=== PATIENT | female | born 1950 | race Caucasian/White ===

== ENCOUNTER 2018-11-01 06:47 | Observation (INO) | payer OTHER ==
[2018-11-01] MEDS ORDERED: LR 1,000 ML IV ONE (06:58)
[2018-11-01] MEDS ORDERED: DEXAMETHASONE 4 MG/ML VIAL IVP ONE (06:58)
[2018-11-01] MEDS ORDERED: ceFAZolin 2 GM/DEXTROSE 100 ML IV ONE (06:58)
[2018-11-01] MEDS ORDERED: MIDAZOLAM 2 MG/2 ML VIAL IVP ONE (07:17)
--- NOTE | 2018-11-01 07:20 | PDANEPAE ---
ANE History of Present Illness zencker's divertic ANE Past Medical History - Cardiovascular History Hx Hypertension: Yes Hx Arrhythmias: No Hx Chest Pain: No Hx Coronary Artery / Peripheral Vascular Disease: Yes Hx CHF / Valvular Disease: No Hx Palpitations: No - Pulmonary History Hx COPD: No Hx Asthma/Reactive Airway Disease: No Hx Recent Upper Respiratory Infection: No Hx Oxygen in Use at Home: No Hx Sleep Apnea: Yes Pulmonary History Comment: MARYELLEN uses CPAP - Neurologic History Hx Cerebrovascular Accident: No Hx Seizures: No Hx Dementia: No - Endocrine History Hx Diabetes: No Hypothyroid: No Hyperthyroid: No Obesity: mild - Renal History Hx Renal Disorders: No - Liver History Hx Hepatic Disorders: Yes Hepatic History Comment: FATTY LIVER - Neurological & Psychiatric Hx Hx Neurological and Psychiatric Disorders: Yes Neurological / Psychiatric History Comment: 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 mediport removed. cardiac cath 2014 ANE Review of Systems Review of Systems: - Exercise capacity Exercise capacity: >=4 METS METS (RN): 4 METS ANE Patient History - Allergies Allergies/Adverse Reactions: diphenhydramine HCl [From Benadryl] Allergy (Severe, Verified 10/31/18 09:06) TROUBLE BREATHING/ELEVATED BP/TEMP zolpidem tartrate [From Ambien] Allergy (Severe, Verified 10/31/18 09:06) SOB/TONGUE SWELLS adhesive tape Allergy (Intermediate, Verified 10/31/18 09:06) WELTS - Home Medications Home medications: home medication list seen and reviewed Home Medications: Ibuprofen [Motrin (*)] 200 mg PO DAILY PRN 10/25/18 [Last Taken Unknown] Amlodipine Besylate 10/31/18 [Last Taken Unknown] Losartan Potassium 10/31/18 [Last Taken Unknown] - NPO status NPO Status: no food or drink >8 hours - Anes Hx Anes Hx: no prior problems Hx Anesthesia Complications (with details): sometimes low O2 following procedures - Smoking Hx Smoking Status: Never smoked - Family Anes Hx Family Hx Anesthesia Complications: none ANE Labs/Vital Signs - Vital Signs Height: 165.1 cm Weight: 68.039 kg ANE Physical Exam - Airway Mallampati Score: Class 2 Mouth exam: normal dental/mouth exam - Pulmonary Pulmonary: no respiratory distress - Cardiovascular Cardiovascular: regular rate and rhythym - ASA Status ASA Status: III ANE Anesthesia Plan Anesthesia Plan: general endotracheal anesthesia
[2018-11-01] MEDS ORDERED: SUCCINYLCHOLINE CHLORIDE 200 MG/10 ML SYR IVP ONE (07:25)
[2018-11-01] MEDS ORDERED: PROPOFOL 200 MG/20 ML VIAL ONE (07:25)
[2018-11-01] MEDS ORDERED: fentaNYL 100 MCG/2 ML INJ ONE (07:25)
[2018-11-01] MEDS ORDERED: DEXAMETHASONE 4 MG/ML VIAL ONE (07:25)
[2018-11-01] MEDS ORDERED: ONDANSETRON 4 MG/2 ML VIAL ONE ×2 (07:25→09:19)
[2018-11-01] MEDS ORDERED: LIDOCAINE 2% 5 ML SDV ONE (07:27)
[2018-11-01] MEDS ORDERED: LIDO/EPI 1% **Not for Epidural 20 ML MDV ONE (07:28)
[2018-11-01] MEDS ORDERED: EPINEPHrine 1 MG/ML INJ ONE (07:32)
--- NOTE | 2018-11-01 07:40 | PDHPUP ---
History & Physical Update H&P update statement: This history and physical update is based on an assessment of the patient which was completed after admission or registration (within 24 hours), but prior to the surgery/procedure. H&P update: H&P reviewed & patient examined, no change in patient's condition since H&P completed
[2018-11-01] MEDS ORDERED: ROCURONIUM 50 MG/5 ML VIAL ONE (08:06)
[2018-11-01] MEDS ORDERED: ePHEDrine SULFATE 25 MG/5 ML SYR ONE (08:17)
[2018-11-01] MEDS ORDERED: SUGAMMADEX SODIUM 200 MG/2 ML VIAL IVP ONE (08:53)
[2018-11-01] MEDS ORDERED: fentaNYL 100 MCG/2 ML INJ IVP PRN (09:09)
[2018-11-01] MEDS ORDERED: ONDANSETRON 4 MG/2 ML VIAL IVP PRN ×2 (09:09→10:11)
[2018-11-01] MEDS ORDERED: NALOXONE HCL 0.4 MG/ML INJ IVP PRN (09:09)
[2018-11-01] MEDS ORDERED: LR 500 ML IV PRN (09:09)
[2018-11-01] MEDS ORDERED: ALBUTEROL 3 ML DEYVIAL IH PRN (09:09)
--- NOTE | 2018-11-01 09:09 | POSTANESTH ---
Post Anesthetic Evaluation Cardiovascular Status: Normal, Stable Respiratory Status: Normal, Stable Level of Consciousness/Mental Status: Can Participate in Eval Pain Control: Adequate, Prn Tx Ordered Nausea/Vomiting Control: Adequate, Prn Tx Ordered Complications Possibly Related to Anesthesia: None Noted
[2018-11-01] MEDS ORDERED: ACETAMINOPHEN 160 MG/5 ML UDCUP PO PRN (10:11)
[2018-11-01] MEDS ORDERED: HYDROCOD/APAP 7.5/325 IN 15ML UDCUP PO PRN (10:11)
[2018-11-01] MEDS ORDERED: NS 1,000 ML IV SCH (10:15)
[2018-11-01] MEDS: ACETAMINOPHEN 650 MG/20.3 ML UDCUP PO PRN ×2 (18:32→22:51)
--- NOTE | 2018-11-01 18:33 | POSTOPPROG ---
Post Op Note Date of Operation: 11/01/18 Surgeon: Brigido Chen Anesthesiologist: Marco Cee Anesthesia: GET(General Endotracheal) Pre-op Diagnosis: Dysphagia, Zenkers diverticulum Post-op Diagnosis: same Indication: Zenkers Procedure: Suspensin microlaryngoscopy with stapling of zenkers Findings: Large zenkers Inf/Abcess present in the surg proc area at time of surgery?: No Depth: Deep Incisional (Fascial) EBL: Minimal Complications: none Specimen(s): none
--- NOTE | 2018-11-01 18:43 | SOAPPROG ---
NAYELY Progress Note Assessment/Plan: Assessment: PT doing well Plan: Advance to soft diet tomorrow. D/C tomorrow and stay on regular diet till Monday. Follow up in one week. 11/01/18 18:41 Subjective: I dont have any pain. Objective: Vital Signs Temp Pulse Resp BP Pulse Ox 36.7 C 96 16 122/66 H 97 11/01/18 16:06 11/01/18 16:06 11/01/18 16:06 11/01/18 16:06 11/01/18 16:06 10/31/18 11/01/18 11/02/18 05:59 05:59 05:59 Intake Total 2000 Output Total 1999 Balance 0 Neck flat. Pt looks great ICD10 Worksheet Patient Problems: Problems Problem Status Onset Sleep apnea Acute Zenkers diverticulum Acute - ICD10 Problem Qualifiers (1) Zenkers diverticulum (2) Sleep apnea
--- NOTE | 2018-11-01 18:59 | GOP ---
[f rep st] OPERATIVE REPORT DATE OF OPERATION: 11/01/2018 SURGEON: Brigido Chen MD ANESTHESIA: General. PREOPERATIVE DIAGNOSIS: Dysphagia and Zenker diverticulum. POSTOPERATIVE DIAGNOSIS: Dysphagia and Zenker diverticulum. PROCEDURE PERFORMED: Suspension microlaryngoscopy with stapling of Zenker diverticulum. FINDINGS: A large Zenker diverticulum was identified in the typical position. The democrat wall was di vided in the normal fashion with the surgical sealing device. SPECIMENS: None. ESTIMATED BLOOD LOSS: Minimal. INDICATIONS: The patient is a 68-year-old woman with slowly worsening dysphagia over the last few ye ars. She was found to have a large Zenker diverticulum and presents for surgery in hopes of relievin g her dysphagia. DESCRIPTION OF PROCEDURE: The patient was taken to the OR and positively identified, placed on monit ors and general endotracheal anesthesia was induced. The table was then turned 90 degrees. A head d rape was placed and followed by drape. I then fashioned a dental guard out of thermoplastic and plac ed it over the upper incisors to decrease the risk of dental injury. The Weerda laryngoscope was then used to visualize the hypopharynx. It was passed into the hypophary nx behind the larynx and then opened. I was able to identify the Zenker diverticulum, which was fill ed with debris, as well as the democrat wall between the Zenker's and the esophagus. The patient was th en placed in suspension. The Zenker's was cleared of debris. An orogastric feeding tube was then pa ssed into the esophagus to make sure it was positively identified as the true esophagus, which it was . At this point, the endoscopic surgical sealing device was then passed through the laryngoscope wit h visualization using a combination of the microscope and rigid endoscopes. I started with a microsc ope and switched over to the 30-degree rigid scope. Under direct visualization, the democrat wall was c lamped into position. The sealing device was then actuated. Once the treatment was completed, the t button pusher was pulled and this deployed the razor, which cut the democrat wall. This had to be repeated 2 m ore times to get to the bottom of the rather deep Zenker diverticulum. At the completion of this, th ere was no evidence of any bleeding. The case was terminated. The laryngoscope was then removed jocelyn ng with the dental guard, and the patient was turned back over to Anesthesia. The anesthetic was dis continued. She was extubated and taken to postop care in good condition having tolerated the procedu re well. COMPLICATIONS: None. /[id number]/MODL
[2018-11-02] MEDS: ACETAMINOPHEN 650 MG/20.3 ML UDCUP PO PRN (07:20)
[2018-11-02 07:56] VITALS: BP 122/57
--- NOTE | 2018-11-02 08:25 | SOAPPROG ---
SOAP Progress Note Assessment/Plan: pt s/p zenkers. doing well. Some discomfort upper chest. Plan:Pt will be discharged home on 3 days soft diet. f/u 1 week. 11/02/18 08:24 Objective: Vital Signs Temp Pulse Resp BP Pulse Ox 36.9 C 69 20 122/57 H 93 11/02/18 07:54 11/02/18 07:54 11/02/18 07:54 11/02/18 07:54 11/02/18 07:54 11/01/18 11/02/18 11/03/18 05:59 05:59 05:59 Intake Total 2200 Output Total 2800 Balance -600 ICD10 Worksheet Patient Problems: Problems Problem Status Onset Sleep apnea Acute Zenkers diverticulum Acute
--- NOTE | 2018-11-02 08:28 | PDDCSUM ---
Discharge Summary Discharge Summary: pt s/p xzenkers repair by Dr. Chen. No concerns discharge home. Stable condition 3 days of soft food diet. f/u 1 week.
== END 2018-11-02 12:13 | disposition home or self-care (01) ==
LOC: F3E 06:47
PROVIDERS: ADMIT Otolaryngology; ATTEND Otolaryngology
PROC: 0DQ58ZZ Repair Esophagus, Via Natural or Artificial Opening Endoscopic (ICD-10-PCS; principal; 2018-11-01 08:00)
DX: K22.5 Diverticulum of esophagus, acquired (principal); E04.2 Nontoxic multinodular goiter; I10 Essential (primary) hypertension; E78.5 Hyperlipidemia, unspecified; Z95.5 Presence of coronary angioplasty implant and graft
CPT/HCPCS: 43499; G0378; J0171; J0330; J0690; J1100; J2250; J2405; J2704; J3010